=== PATIENT | female | born 1950 | race Asian ===

== ENCOUNTER 2017-06-06 09:58 | Outpatient (CLI) | payer OTHER | END 2017-06-06 17:52 | disposition home or self-care (01) | LOC: SMA 09:58 | PROVIDERS: ATTEND General Practice | DX: Z12.31 Encounter for screening mammogram for malignant neoplasm of breast (principal) | CPT/HCPCS: G0202 ==

== ENCOUNTER 2017-07-18 10:15 | Outpatient (CLI) | payer OTHER | END 2017-07-18 20:49 | disposition home or self-care (01) | LOC: SUS 10:15 | PROVIDERS: ATTEND General Practice | DX: R92.8 Other abnormal and inconclusive findings on diagnostic imaging of breast (principal) | CPT/HCPCS: G0206 ==

== ENCOUNTER 2017-11-07 09:37 | Outpatient (CLI) | payer OTHER | END 2017-11-07 19:52 | disposition home or self-care (01) | LOC: SUS 09:37 | PROVIDERS: ATTEND General Practice | DX: N63.20 Unspecified lump in the left breast, unspecified quadrant (principal) | CPT/HCPCS: 76642 ==

== ENCOUNTER 2018-07-25 09:11 | Outpatient (CLI) | payer OTHER | END 2018-07-25 20:06 | disposition home or self-care (01) | LOC: SMA 09:11 | PROVIDERS: ATTEND General Practice | DX: Z12.31 Encounter for screening mammogram for malignant neoplasm of breast (principal) | CPT/HCPCS: 77067 ==

== ENCOUNTER 2019-07-30 08:15 | Outpatient (CLI) | payer OTHER | END 2019-07-30 20:15 | disposition home or self-care (01) | LOC: SMA 08:15 | DX: Z12.31 Encounter for screening mammogram for malignant neoplasm of breast (principal) | CPT/HCPCS: 77067 ==

== ENCOUNTER 2019-08-08 12:48 | Outpatient (CLI) | payer OTHER | END 2019-08-08 18:15 | disposition home or self-care (01) | LOC: SMA 12:48 | PROVIDERS: ATTEND General Practice | DX: R92.2 Inconclusive mammogram (principal) | CPT/HCPCS: 77065 ==

== ENCOUNTER 2020-12-23 08:49 | Outpatient (CLI) | payer OTHER | END 2020-12-23 21:08 | disposition home or self-care (01) | LOC: SMA 08:49 | DX: Z12.31 Encounter for screening mammogram for malignant neoplasm of breast (principal) | CPT/HCPCS: 77067 ==